=== PATIENT | male | born 1960 | race Caucasian/White ===

== ENCOUNTER 2018-01-24 11:35 | Emergency (ER) | payer OTHER ==
[~2018-01-24] VITALS: Ht 193 cm; Wt 129.3 kg
[2018-01-24 11:38] VITALS: BP 146/89
[2018-01-24] MEDS ORDERED: KEFLEX500 M1 PO (12:05)
--- NOTE | 2018-01-24 12:05 | ED UPPER/LOWER EXTREMITY COMPL ---
History of Present Illness General Chief Complaint: Upper Extremity Injury Stated Complaint: PUNCTURE WOUND TO LT ARM Source: patient Exam Limitations: no limitations Vital Signs & Intake/Output Vital Signs & Intake/Output Vital Signs Date Time Temp Pulse Resp B/P B/P Pulse O2 O2 Flow FiO2 Mean Ox Delivery Rate 01/24 1138 97.4 96 18 146/89 97 Room Air Allergies Coded Allergies: No Known Allergies (01/24/18) Reconcile Medications Cephalexin (Keflex) 500 MG CAPSULE 1 CAP PO TID puncture wound Triage Note: 57 YO MALE TO TRIAGE C/O PUNTURE WOUND TO L FOREARM, STATES HE HIT IT AGAINST A GATE LATCH AND THE LATCH GOT STUCK IN HIS ARM. PT NOT UTD WITH TETANUS. NO ACTIVE BLEEDING AT THIS TIME. Triage Nurses Notes Reviewed? yes Onset: Abrupt Duration: hour(s):, constant Severity: mild, moderate Pain/Injury Location: Left: Forearm. HPI: 57-year-old male comes into the emergency room for further evaluation of puncture wound to his left forearm. Patient reports he was picking up his cat and caught it on the fence. He has some associated bleeding. Denies any diabetes or any other past medical history. His tetanus shot is unknown. He comes in for further evaluation. Past History Travel History Traveled to [place] past 21 day No Medical History Any Pertinent Medical History? see below for history Neurological: NONE EENT: NONE Cardiovascular: NONE Respiratory: NONE Gastrointestinal: NONE Hepatic: NONE Renal: NONE Musculoskeletal: NONE Psychiatric: NONE Endocrine: NONE Blood Disorders: NONE Cancer(s): NONE EYELET MAKER/Reproductive: NONE Surgical History Surgical History: non-contributory Psychosocial History What is your primary language Greek Tobacco Use: Never used Family History Hx Contributory? No Review of Systems Review of Systems Constitutional: Reports: no symptoms. EENTM: Reports: no symptoms. Respiratory: Reports: no symptoms. Cardiovascular: Reports: no symptoms. Gastrointestinal/Abdominal: Reports: no symptoms. Genitourinary: Reports: no symptoms. Musculoskeletal: Reports: see HPI. Skin: Reports: no symptoms. Neurological/Psychological: Reports: no symptoms. Hematologic/Endocrine: Reports: no symptoms. Immunological: Reports: no symptoms. All Other Systems: Reviewed and Negative Physical Exam Physical Exam General Appearance: well developed/nourished, mild distress Head: atraumatic Eyes: Bilateral: normal appearance. Ears, Nose, Throat: normal ENT inspection, hearing grossly normal Neck: normal inspection Cardiovascular/Respiratory: no respiratory distress Back: normal inspection Hand Left: puncture wound to left forearm, no bleeding, some associated soft tissue swelling,Superficial abrasion associated with it approximately 2-3 cm long Neurologic/Tendon: normal sensation, normal motor functions, normal tendon functions, responds to pain, no evidence tendon injury, no pulse deficit Skin: intact, normal color, warm/dry Lymphatic: no anterior cervical chau Progress Differential Diagnosis: contusion, fracture, sprain, tendon injury, foreign body , fx Plan of Care: Current Medications Sig/Haresh Start time Last Medication Dose Stop Time Status Admin Tetanus/Diphtheria 0.5 ML ONCE ONE 01/24 1215 AC Toxoids Adsorbed 01/24 1216 (Decavac) Departure Departure Disposition: HOME OR SELF CARE Condition: Stable Clinical Impression Primary Impression: Puncture wound of left forearm Referrals: Jovan QUINTERO,Walker Knowles (PCP/Family) Additional Instructions: Take Keflex as prescribed. Bacitracin and warm compresses. Watch for signs of infection such as redness or discharge fever chills. Please go over all results of today's visit with your primary care doctor. Contact your primary care doctor to let them know you were here in the emergency room. There may be nonspecific findings which may not be related to your visit today here in the emergency room but may require further evaluation and chronic monitoring by your primary care doctor. If you had a laceration today the chance of foreign body always remains. You should follow-up with your primary care doctor for recheck in 3-5 days for a wound check. If you had an x-ray done there is a chance that a fracture could have been missed on initial read and you should follow-up with your primary care doctor for repeat x-rays if symptoms persist. If your blood pressure was elevated here in the emergency room please have rechecked by [facility] primary care doctor within the next 48. If you were prescribed a narcotic here in the emergency room or any type of controlled substances you're not allowed to drive while taking this medication or operate any type of heavy machinery. Narcotics can make you feel lightheaded dizziness nausea and can cause constipation. You may need to package pick up a stool softener. Thank you for choosing [facility] emergency room. Please return to the emergency room immediately if you have any other concerns worsening of symptoms. Departure Forms: Customer Survey General Discharge Information Prescriptions: Current Visit Scripts Cephalexin (Keflex) 1 CAP PO TID #21 CAP Comments 01/24/2018 2:45:21 PM Patient started on oral antibiotics. Tetanus shot was given. It was irrigated with saline and peroxide here in the ED. Bacitracin placed. Nothing to suture on exam. ED Attending Observation Initial Observation Note: I have seen and personally examined MARIELENA CARRILLO on 01/24/18 at 1444. I agree with the current emergency department documentation. The disposition (admission or discharge) is uncertain at this time, he needs a period of observation for the following reason(s): The ED Nurse caring for this patient has been personally informed as to what the patient is being observed for.
== END 2018-01-24 12:16 ==
LOC: ERH 11:35
DX: S51.832A Puncture wound without foreign body of left forearm, initial encounter (principal); W45.8XXA Other foreign body or object entering through skin, initial encounter; Y93.89 Activity, other specified; Y92.9 Unspecified place or not applicable
CPT/HCPCS: 90471; 90714